=== PATIENT | male | born 1950 | race Asian ===

== ENCOUNTER 2025-08-05 10:35 | Outpatient (AMB) | payer OTHER, SELFPAY ==
--- NOTE | 2025-08-05 11:03 | A.PHYSOV ---
Vital Signs 08/05/25 11:08 Height 5 ft 3 in Weight 165 lb BMI 29.2 Pulse 73 Temp 97.9 F Intake Visit Reasons: Lumbar Interlaminar Epidural Inj L5-S1 Allergies No Known Allergies Allergy (Verified 08/05/25 11:09) [facility] Medical History (Updated 08/05/25 @ 11:19 by Sam Keating DO) Lumbar radiculitis Surgical History (Updated 08/03/25 @ 12:59 by Chanel Arana MA) History of knee replacement (Unknown) Social History (Updated 08/05/25 @ 11:10 by Chanel Arana MA) Alcohol intake: current Alcohol intake frequency: holidays/special occasions only Patient Tobacco Use Status: Never used Tobacco Use of substances other than those prescribed or required for medical reasons: No Current occupational status: retired Physical Exam Vital Signs: Last Vital Signs Temp 97.9 F 08/05/25 11:08 Pulse 73 08/05/25 11:08 BMI result Body Mass Index 29.2 Office Procedures Procedure Details: Procedure performed: L5-S1 lumbar epidural steroid injection Preop diagnosis: Lumbar radiculitis Postop diagnosis: The same Anesthesia: Local After informed consent was obtained patient was brought into the procedure room and placed in the prone position on the procedure table. Skin over the lumbar sacral area was prepped and draped in usual sterile manner. L5-S1 interlaminar space was visualized utilizing fluoroscopy. After skin was anesthetized with 1% lidocaine solution, 3.5 in 20 gauge Toughy needle was introduced percutaneously and advanced toward the epidural space at the indicated level. Loss of resistance technique was utilized. Needle placement was verified utilizing 3 cc of Omnipaque contrast solution. Excellent epidural spread was visualized without evidence of vascular uptake. Total volume of 8 cc containing 2 cc of 1% lidocaine, 40 mg of triamcinolone and normal saline solution were injected after negative aspiration for blood and cerebrospinal fluid. Radiation exposure was documented in the chart. Lumbar Interlaminar Epidural 38680- use with FL Gd order: Lumbar Interlaminar Epidural Steroid Injection 73384 Procedure code (CPT) selection complete Office Meds Kenalog 40 mg/mL suspension for injection Performing Provider: Sam Keating DO Performing Location: [facility] Administered by: Sam Keating DO on 08/05/25 11:20 Dose Route Admin Location Dispensed Lot Number Expiration Date NDC Loom Blower 40 mg epidural 1 mL [address]-5 [employer] Total Dispensed Waste 1 mL 0 % lidocaine (PF) 10 mg/mL (1 %) injection solution Performing Provider: Sam Keating DO Performing Location: [facility] Administered by: Sam Keating DO on 08/05/25 11:20 Dose Route Admin Location Dispensed Lot Number Expiration Date [facility] Loom Blower 50 mg epidural 5 mL 56758-951-43 [facility] [employer] Total Dispensed Waste 5 mL 0 % Omnipaque 300 300 mg iodine/mL intravenous solution Performing Provider: Sam Keating DO Performing Location: [facility] Administered by: Sam Keating DO on 08/05/25 11:20 Dose Route Admin Location Dispensed Lot Number Expiration Date [facility] Loom Blower 3 mL epidural 10 mL [id number] [employer] Total Dispensed Waste 10 mL 70 % Assessment & Plan Assessment & Plan (1) Lumbar radiculitis: Code(s): M54.16 - Radiculopathy, lumbar region Category: Medical Plan: Procedure Plan Procedure Orders: Orders FL Gd L Spine Interlaminar Inj Today M54.16 - Radiculopathy, lumbar region AMB Lumbar Interlaminar Epidural Steroid Injection Today M54.16 - Radiculopathy, lumbar region Coding Level of Care Code Procedure Only Diagnoses Lumbar radiculitis M54.16 CPT Codes Lumbar Interlaminar Epidural Steroid I - 40897 - Lumbar Interlaminar Epidural: Lumbar Interlaminar Epidural Steroid Injection 50372 ([id number])
[2025-08-05 11:08] VITALS: PULSE 73; TEMP 36.6; BMI 29.2
--- OUTSIDE RECORDS SUMMARY | 2025-08-05 12:34 | XMS_ITS ---
Author Name [facility] Organization Unknown Encounters Encounter Type Encounter Reason Primary Diagnosis Location Date Ambulatory [facility] 06/11/2024 Care Team Organization Name Specialty Phone Email Start Date End Da te [facility] 2024
--- OUTSIDE RECORDS SUMMARY | 2025-08-05 12:34 | XMS_ITS | Clinical Summary ---
Author Organization [facility] [address] [facility] Address [address], [place] Phone Care Team Providers Care Door To Door Selling Agent Name Role Phone Camelia Justice DO Primary Care Provider [phone] Allergies No known active allergies Medications clobetasoL (TEMOVATE) 0.05 % ointment Apply to affected areas twice daily as needed; not to use for more then 14 consecutive days. 06/17/20 23 Active triamcinolone (KENALOG) 0.025 % cream Apply to affected areas twice daily as needed. 03/19/20 24 Active cyclobenzaprine (FLEXERIL) 10 mg tablet Take 1 tablet (10 mg total) by mouth at bedtime as needed for muscle spasms. 30 tablet 08/23/20 24 Active cetirizine (ZyrTEC) 10 mg tablet Take 1 tablet (10 mg total) by mouth 1 (one) time each day. 90 each 11/25/19 25 Active pravastatin (PRAVACHOL) 20 mg tabletIndications: Hyperlipidemia, unspecified hyperlipidemia type Take 1 tablet (20 mg total) by mouth 1 (one) time each day. 90 each 1 05/03/20 25 026 Active fish oil (OMEGA-3) 60-90-500 mg capsule Take 2 capsules (1,000 mg total) by mouth 2 (two) times a day. 360 capsule 1 05/06/20 25 026 Active Active Problems Problem Noted Date Diagnosed Date Abnormal EKG 04/05/2025 Dyspnea 04/05/2025 1st degree AV block 04/05/2025 PAC (premature atrial contraction) 04/05/2025 Overview (04/05/2025): DECREASED ACTIVITY Elevated LFTs 11/18/2023 Overview (06/22/2024): Coarsened appearance of liver on US 11/22. Status post bilateral knee replacements 10/16/19 Overview (06/22/2024): Right TKR 11/19/22 Left TKR 01/21/23 Dr Clint Sevilla for both Lumbar spinal stenosis 08/19/2023 Prediabetes 06/19/2022 Acute pain of left knee 06/14/2019 HTN (hypertension) 01/28/2019 Overview (06/22/2024): Per patient Hyperlipidemia 01/28/2019 Overview (06/22/2024): Per patient Colon polyps 07/11/2016 Overview (06/22/2024): Colonoscopy(09/15/12, [facility] 1 Polyp in the cecum (polypectomy), 3 Polyps in the ascending colon (polypectomy). Bx show tubular adenoma. GI suggest f/u in 3 yrs. >> [facility] colonoscopy 11/19/16: polyps in AC, DC and SC, s/p polypectomy. Mild diverticulosis and IH. path results show Tubular adenoma. GI rec to repeat colonoscopy in 3 years Chronic bilateral low back pain without sciatica 04/04/2016 Encounters Date Type Department Care Team Description 06/24/2025 Telephone Internal Medicine - [facility] [address] [place] [address] Camelia Justice DO from Last 3 Months Immunizations Immunization Administration Dates Next Due Influenza trivalent, 0.5mL ( Fluad) 65yo and older 06/09/2023,07/08/2022,05/22/2021,06/03 Influenza trivalent, 0.5mL, preservative free (Fluarix; FluLaval; Fluzone) ages 6mo and older (Afluria) 3 years and older 05/23/2017 Influenza trivalent, with pr eservative (Fluzone; Afluria) 6mo and older 07/11/2016 Pfizer SARS-CoV-2 COVID-19, mRNA, LNP-S, preservative free 07/05/2021 Pneumococcal conjugate 13 va lent (Prevnar 13, PCV13) 2mo and older 04/09/2019,10/15/2016 Pneumococcal polysaccharide 23 valent (Pneumovax 23) 2yo and older 08/21/2021 Tdap Tetanus diptheria acell ular pertussis (Boostrix; Adacel) 7yo and older 04/09/2019 Medical History Medical History Date Comments Hypertension DX:Hypertension Mixed hyperlipidemia DX:Mixed hy perlipidemia Chronic low back pain DX:Chronic low back pain Colon polyps DX:Colon polyps Social History Tobacco Use Types Packs/Day Years Used Date Smoking Tobacco: Former Cigarettes 1 38 0 09/01/1969 - 09/01/2007 Smokeless Tobacco: Never Tobacco Cessation:Counseling Given: Not Answered Alcohol Use Standard Drinks/Week Comments No 0 (1 standard drink = 0.6 oz pur e alcohol) Sex and Gender Information Value Date Recorded Sex Assigned at Not on file Legal Sex Male 2:48 PM EST Gender Identity Not on file Sexual Orientation Not on file Obstetrics History Last Filed Vital Signs Vital Sign Reading Time Taken Comments Blood Pressure 122/70 05/03/2025 1:37 PM EDT Pulse 83 05/03/2025 1:19 PM EDT Temperature 36.9 C (98.4 F) 04/11/2025 11:22 AM EDT Respiratory Rate - - Oxygen Saturation 94% 04/11/2025 11:22 AM EDT Inhaled Oxygen Concentration - - Weight 74.9 kg (165 lb 3.2 oz) 05/03/2025 1:19 P M EDT Height 165.1 cm (5' 5 ) 05/03/2025 1:19 PM EDT Body Mass Index 27.49 05/03/2025 1:19 PM EDT Plan of Treatment Upcoming Encounters Date Type Department Care Team (Late st Contact Info) Description 09/05/2025 8:30 AM EST [facility] [phone] Demetrice Bruno, JORDAN [address] [place] [address] Health Maintenance Due Date Last Done Comments Zoster Vaccines (1 of 2) 2001 Falls Risk Assessment 07/31/2022 Medicare Annual Wellness Visit 07/31/2022 Social Influencers of Health Screening 07/31/2022 Depression Screening 09/01/2024 COVID-19 Vaccine ( - season) 2025 07/05/2021, 11/12/2020, 10/19/2020 Influenza Vaccine (#1) 2025 , 06/09/2023, 07/08/2022, Additional history exists Hypertension/CHF/CAD Annual BMP Blood Test 05/04/2026 05/04/2025, 11/24/2024, 07/09/2024, Additional history exists RSV Immunization Adult Patients (1 - 1-dose 75+ series) 2026 DTaP,Tdap,and Td Vaccines (2 - Td or Tdap) 04/09/2029 04/09/2019 Cholesterol Screening (Lipid Panel) 05/04/2030 05/04/2025, 05/04/2025, 02/18/2024, Additional history exists Colorectal Cancer Screening: Colonoscopy 09/04/2031 09/04/2021 Pneumococcal Vaccine: 50+ Years Completed 08/21/2021, 04/09/2019, 10/15/2016 Hepatitis C Screening Completed 08/19/2023 Abdominal Aortic Aneurysm (AAA) Screen Completed 11/12/2023 HIB Vaccines Aged Out No longer eligi ble based on patient's age to complete this topic HPV Vaccines Aged Out No longer eligi ble based on patient's age to complete this topic Hepatitis A Vaccines Aged Out No long er eligible based on patient's age to complete this topic Hepatitis B Vaccines Aged Out No long er eligible based on patient's age to complete this topic IPV Vaccines Aged Out No longer eligi ble based on patient's age to complete this topic MMR Vaccines Aged Out No longer eligi ble based on patient's age to complete this topic Meningococcal ACWY Vaccine Aged Out N o longer eligible based on patient's age to complete this topic Meningococcal B Vaccine Aged Out No l onger eligible based on patient's age to complete this topic RSV Immunization Patients Under 20 months Aged Out No longer eligible based on patient's age to complete this topic Varicella Vaccines Aged Out No longer eligible based on patient's age to complete this topic Procedures Procedure Name Priority Date/Time Associated Diagnosis Comments COMPREHENSIVE METABOLIC PANEL Routine 05/04/2025 8:55 AM EDT Hyperlipidemia, unspecified hyperlipidemia type LIPID PANEL WITH REFLEX TO DIRECT LDL Routine 05/04/2025 8:55 AM EDT Hyperlipidemia, unspecified hyperlipidemia type ABDOMINAL AORTIC ANEURYSM SCRREN Routine 11/12/2023 HEPATITIS C SCREENING Routine 08/19/2023 COLONOSCOPY Routine 09/04/2021 from Last 3 Months or Most Recently Relevant to Health Maintenance Results * (ABNORMAL) Lipid panel with reflex to direct LDL (05/04/2025 8:55 AM EDT) Cholesterol 253(H) 0 - 200 mg/dL LAB CHEMISTRY METHOD 05/04/2025 1:47 PM EDT [facility] Triglycerides 709(H) 0 - 150 mg/dL LAB CHEMISTRY METHOD 05/04/2025 1:47 PM [facility] HDL 39(L) >=40 mg/dL LAB CHEMISTRY METHOD 05/04/2025 1:47 PM EDT [facility] LDL Calculated LAB CHEMISTRY METHOD 05/04/2025 1:47 PM EDT [facility] Comment: Unable to calculate when triglycerides >400 mg/dL. Triglyceride value is >= 500. Calculated LDL is not meaningful. Direct LDL has been added. VLDL Cholesterol Evan LAB CHEMISTRY METHOD 05/04/2025 1:47 PM EDT [facility] Comment:Unable to calculate when triglycerides >400 mg/dL. Non HDL Chol. (LDL+VLDL) LAB CHEMISTRY METHOD 05/04/2025 1:47 PM [facility] Comment:Unable to calculate when triglycerides >400 mg/dL. Chol/HDL Ratio 6.5(H) 0.0 - 4.4 LAB CHEMISTRY METHOD 05/04/2025 1:47 PM [facility] Blood Venous blood specimen / Unknown Venipuncture / Unknown 05/04/2025 8:55 AM EDT 05/04/2025 8:55 AM EDT us Demetrice Bruno NP LAB BLOOD ORDERABLES Final Resul t [facility] [address] [place] [address], [place] [phone] * (ABNORMAL) Comprehensive metabolic panel (05/04/2025 8:55 AM EDT) Sodium 135 133 - 145 mmol/L LAB CHEMISTRY METHOD 05/04/2025 1:23 PM [facility] Potassium 4.0 3.5 - 5.5 mmol/L LAB CHEMISTRY METHOD 05/04/2025 1:23 PM [facility] Chloride 101 96 - 110 mmol/L LAB CHEMISTRY METHOD 05/04/2025 1:23 PM [facility] CO2 26 21 - 32 mmol/L LAB CHEMISTRY METHOD 05/04/2025 1:23 PM [facility] Anion Gap 8 3 - 11 LAB CHEMISTRY METHOD 05/04/2025 1:23 PM [facility] Glucose 203(H) 70 - 100 mg/dL LAB CHEMISTRY METHOD 05/04/2025 1:23 PM [facility] BUN 25 5 - 25 mg/dL LAB CHEMISTRY METHOD 05/04/2025 1:23 PM [facility] Creatinine 1.46(H) 0.70 - 1.30 mg/dL LAB CHEMISTRY METHOD 05/04/2025 1:23 PM [facility] eGFR 50(L) >=60 mL/min/1. 73m2 LAB CHEMISTRY METHOD 05/04/2025 1:23 PM EDT [facility] Comment:Calculation based on the Chronic Kidney Disease Epidemiology Collaboration (CKD-EPI) equation refit without adjustment for race. BUN/Creatinine Ratio 17.1 LAB CHEMISTRY METHOD 05/04/2025 1:23 PM EDT [facility] Calcium 9.8 8.5 - 10.5 mg/dL LAB CHEMISTRY METHOD 05/04/2025 1:23 PM EDT [facility] AST (SGOT) 75(H) 10 - 42 unit/L LAB CHEMISTRY METHOD 05/04/2025 1:23 PM [facility] ALT (SGPT) 83(H) 10 - 60 unit/L LAB CHEMISTRY METHOD 05/04/2025 1:23 PM [facility] Alkaline Phosphatase 160(H) 42 - 121 unit/L LAB CHEMISTRY METHOD 05/04/2025 1:23 PM T [facility] Total Protein 7.1 6.0 - 8.0 g/dL LAB CHEMISTRY METHOD 05/04/2025 1:23 PM [facility] Albumin 4.0 3.2 - 5.0 g/dL LAB CHEMISTRY METHOD 05/04/2025 1:23 PM [facility] Total Bilirubin 1.0 0.0 - 1.4 mg/dL LAB CHEMISTRY METHOD 05/04/2025 1:23 PM T [facility] Blood Venous blood specimen / Unknown Venipuncture / Unknown 05/04/2025 8:55 AM EDT 05/04/2025 8:55 AM EDT us Demetrice Bruno NP LAB BLOOD ORDERABLES Final Resul t [facility] [address] [place] [address], * Abdominal Aortic Aneurysm Screen (11/12/2023) Abdominal Aortic Aneurysm (AAA) Screening Abstracted Anatomical Region Laterality Modality Other Historical Provider HEALTH MAINTENANCE Final Result * Hepatitis C Screening (08/19/2023) Hepatitis C Screening Abstracted [facility] Provider HEALTH MAINTENANCE Final Result * Colonoscopy (09/04/2021) Colonoscopy Abstracted, no interpretation Anatomical Region Laterality Modality Other Historical Provider HEALTH MAINTENANCE Final Result from Last 3 Months or Most Recently Relevant to Health Maintenance Insurance [employer] Care Teams Door To Door Selling Agent Relationship Specialty Start Date End Date Camelia Justice DO [address] [place], [place] [address] [address] PCP - General Internal Medicine 06/21/24
--- OUTSIDE RECORDS SUMMARY | 2025-08-05 12:34 | XMS_ITS | Clinical Summary ---
Author Organization [facility] Prior to 01/29/[address] [place] [address] Care Team Providers Care Brand Protection Manager Name Role Phone Unavailable Primary Care Provider Unavailabl e Allergies No known active allergies Social History Tobacco Use Types Packs/Day Years Used Date Smoking Tobacco: Former Smokeless Tobacco: Never Alcohol Use Standard Drinks/Week Comments Never 0 (1 standard drink = 0.6 oz pur e alcohol) Sex and Gender Information Value Date Recorded Sex Assigned at Not on file Gender Identity Not on file Sexual Orientation Not on file Job Start Date Occupation Industry Not on file Not on file Not on file Last Filed Vital Signs Vital Sign Reading Time Taken Comments Blood Pressure - - Pulse 85 08/29/2021 9:13 AM EST Temperature 36.3 C (97.4 F) 08/29/2021 9:13 AM EST Respiratory Rate - - Oxygen Saturation 95% 08/29/2021 9:13 AM EST Inhaled Oxygen Concentration - - Weight - - Height - - Body Mass Index - - Plan of Treatment Health Maintenance Due Date Last Done Comments Hepatitis C Screening 1950 COVID-19 Vaccine (#1) 02/19/1951 Depression Screening 1963 Preventative Health Evaluation 1969 Colon Cancer Screening (Colonoscopy) 1996 Shingrix-Zoster Vaccine (1 of 2) 2001 Fall Risk Assessment 2016 Influenza Vaccine (#1) 2025 , 06/03/2020, 05/23/2017, Additional history exists RSV Adult > 60+ Yrs or (1 - 1-dose 75+ series) 2026 DTap / Tdap / Td (2 - Td or Tdap) 04/09/2029 04/09/2019 Pneumococcal Vaccine Completed 08/21/2021, 04/09/2019, 10/15/2016 Hepatitis B Vaccines Aged Out No long er eligible based on patient's age to complete this topic RSV Ped < 20 months Aged Out No longe r eligible based on patient's age to complete this topic
== END 2025-08-05 11:59 | disposition home or self-care (01) ==
LOC: HO.HPHYS 10:35
PROVIDERS: Visit Provider Physical Medicine & Rehabilitation
DX: M54.16 Radiculopathy, lumbar region (principal)
CPT/HCPCS: 62323